=== PATIENT | female | born 1985 | race Caucasian/White ===

== ENCOUNTER → 2017-05-23 | Outpatient (CLI) | payer OTHER | LOC: FIMAGING 13:02 | PROVIDERS: ATTEND Midwife | DX: N63 Unspecified lump in breast (principal) ==

== ENCOUNTER 2017-07-12 11:53 | Day surgery (SDC) | payer BC, OTHER ==
[2017-07-12] MEDS ORDERED: ceFAZolin 2 GM/SWFI 2 GM/20 ML SYR IVP ONE (12:26)
[2017-07-12] MEDS ORDERED: LR 1,000 ML IV SCH (12:26)
[2017-07-12 12:32] VITALS: PULSE 65
[2017-07-12] MEDS ORDERED: LIDOCAINE 1% 2 ML INJ ID PRN (12:33)
[2017-07-12] MEDS ORDERED: LIDOCAINE 1% 300 MG/30 ML SDV ONE (12:42)
[2017-07-12] MEDS ORDERED: BUPIVACAINE 0.25% 30 ML SDV ONE (12:43)
[2017-07-12] MEDS ORDERED: SODIUM BICARBONATE 10 MEQ/10 ML SYR IVP ONE (12:43)
[2017-07-12] MEDS ORDERED: MIDAZOLAM 2 MG/2 ML VIAL IVP ONE (13:51)
--- NOTE | 2017-07-12 13:51 | PDANEPAE ---
ANE History of Present Illness Breast lump ANE Past Medical History - Cardiovascular History Hx Hypertension: No Hx Arrhythmias: No Hx Chest Pain: No Hx Coronary Artery / Peripheral Vascular Disease: No Hx CHF / Valvular Disease: No Hx Palpitations: No Cardiovascular History Comment: verapamil for headaches - Pulmonary History Hx COPD: No Hx Asthma/Reactive Airway Disease: No Hx Recent Upper Respiratory Infection: No Hx Oxygen in Use at Home: No Hx Sleep Apnea: No Sleep Apnea Screening Result - Last Documented: Negative - Neurologic History Hx Cerebrovascular Accident: No Hx Seizures: No Hx Dementia: No - Endocrine History Hx Diabetes: No - Renal History Hx Renal Disorders: No - Liver History Hx Hepatic Disorders: No - Neurological & Psychiatric Hx Hx Neurological and Psychiatric Disorders: No - Cancer History Hx Cancer: No - Congenital Disorder History Hx Congenital Disorders: No - GI History Hx Gastrointestinal Disorders: No - Other Health History Other Health History: none - Chronic Pain History Chronic Pain: Yes (lower back) - Surgical History Prior Surgeries: none ANE Review of Systems Review of Systems: - Exercise capacity METS (RN): 5 METS ANE Patient History - Allergies Allergies/Adverse Reactions: No Known Allergies Allergy (Verified 07/08/17 17:02) - Home Medications Home medications: home medication list seen and reviewed Home Medications: Verapamil 07/08/17 [Last Taken 07/10/17] - NPO status NPO Since - Liquids (Date): 07/11/17 NPO Since - Liquids (Time): 11:59 NPO Since - Solids (Date): 07/11/17 NPO Since - Solids (Time): 11:59 - Anes Hx Anes Hx: no prior problems - Smoking Hx Smoking Status: Never smoked - Family Anes Hx Family Hx Anesthesia Complications: none ANE Labs/Vital Signs - Vital Signs Blood Pressure: 122/81 Heart Rate: 65 Respiratory Rate: 14 O2 Sat (%): 98 Height: 165.1 cm Weight: 56.699 kg ANE Physical Exam - Airway Neck exam: FROM Mallampati Score: Class 1 Mouth exam: normal dental/mouth exam - Pulmonary Pulmonary: no respiratory distress - Cardiovascular Cardiovascular: regular rate and rhythym - ASA Status ASA Status: I ANE Anesthesia Plan Anesthesia Plan: MAC
--- NOTE | 2017-07-12 13:53 | PDHPUP ---
History & Physical Update H&P update statement: This history and physical update is based on an assessment of the patient which was completed after admission or registration (within 24 hours), but prior to the surgery/procedure. H&P update: H&P reviewed & patient examined, no change in patient's condition since H&P completed
[2017-07-12] MEDS ORDERED: PROPOFOL/EMULSION 500 MG/50 ML BOTTLE IV ONE (13:55)
[2017-07-12] MEDS ORDERED: ONDANSETRON 4 MG/2 ML VIAL IVP PRN (14:03)
[2017-07-12] MEDS ORDERED: NALOXONE HCL 0.4 MG/ML INJ IVP PRN (14:03)
[2017-07-12] MEDS ORDERED: fentaNYL 100 MCG/2 ML INJ IVP PRN (14:03)
--- NOTE | 2017-07-12 15:01 | POSTANESTH ---
Post Anesthetic Evaluation Cardiovascular Status: Normal, Stable Respiratory Status: Normal, Stable Level of Consciousness/Mental Status: Can Participate in Eval, Alert and Oriented Pain Control: Adequate, Prn Tx Ordered Nausea/Vomiting Control: Adequate, Prn Tx Ordered Complications Possibly Related to Anesthesia: None Noted
[2017-07-12] MEDS ORDERED: ONDANSETRON DISINTEGRATING 4 MG TAB PO PRN (15:08)
[2017-07-12] MEDS ORDERED: HYDROCODONE/APAP 5/325 TAB PO PRN (15:08)
[2017-07-12] MEDS ORDERED: IBUPROFEN 600 MG TAB PO PRN (15:09)
--- NOTE | 2017-07-12 15:12 | POSTOPPROG ---
Post Op Note Date of Operation: 07/12/17 Surgeon: Kana Mae (, FACS) Anesthesiologist: Arias Brewster MD Anesthesia: IV Sedation, Other (Specify) (MAC) Pre-op Diagnosis: left breast mass Post-op Diagnosis: same Procedure: left excisional breast bx Findings: benign appearing 8mm nodule Inf/Abcess present in the surg proc area at time of surgery?: No EBL: Minimal (10ml) Specimen(s): left breast mass, deep left breast tissue, superficial
[2017-07-12 15:21] VITALS: TEMP 97.7
[2017-07-12 15:39] VITALS: BP 117/87; RESP 15; O2SAT 100
--- NOTE | 2017-07-12 20:09 | GOP ---
[f rep st] OPERATIVE REPORT DATE OF OPERATION: 07/12/2017 SURGEON: Kana Mae MD, FACS ANESTHESIA: Monitored anesthesia care. ANESTHESIOLOGIST: Miguel Brewster MD PREOPERATIVE DIAGNOSIS: 1. Left breast mass. 2. Family history of breast cancer. POSTOPERATIVE DIAGNOSIS: 1. Left breast mass. 2. Family history of breast cancer. PROCEDURE PERFORMED: Left excisional breast biopsy. FINDINGS: Circumscribed nodular density within a background of dense fibrous breast tissue. Specimen containing an 8 mm circumscribed nodule, grossly consistent with a fibroadenoma. This was excised with additional superficial breast tissue submitted as separate specimens for permanent section. ESTIMATED BLOOD LOSS: 10 cc. DESCRIPTION OF PROCEDURE: After informed consent was obtained, the patient was brought to the operating room and placed under deep sedation. The left breast was prepped and draped in the usual fashion. Before proceeding, a time-out and identification of the patient was performed. 1% lidocaine plain was used to infiltrate the areolar border. The palpable mass was approximately 5 cm from the areolar border in the upper inner quadrant. The subcutaneous breast tissues were infiltrated up to the mass. A circumareolar incision was made with a scalpel, and dissection carried out in the subcutaneous plane cephalad to the area of the palpable mass. This was grasped with an Allis forceps and the tissue excised and removed from the field. This revealed some fibrofatty breast tissue but the nodule remained deep to this. An additional margin of deep breast tissue was excised removing the palpable mass and observing it to be consistent with a fibroadenoma. Hemostasis was secured within the cavity using cautery. Subcutaneous tissues were approximated with 3-0 Vicryl suture. Skin was closed with 4-0 Monocryl suture in a subcuticular fashion. Mastisol and Steri-Strips were applied. Needle, sponge, and instrument count correct. COMPLICATIONS: None. /[id number]/MODL MTDD
== END 2017-07-12 15:54 | disposition home or self-care (01) ==
LOC: FSGY 11:53
PROVIDERS: ATTEND Surgery
PROC: 0HBU0ZX Excision of Left Breast, Open Approach, Diagnostic (ICD-10-PCS; principal; 2017-07-12 13:15)
DX: D24.2 Benign neoplasm of left breast (principal); N60.12 Diffuse cystic mastopathy of left breast; N60.92 Unspecified benign mammary dysplasia of left breast; Z80.3 Family history of malignant neoplasm of breast
CPT/HCPCS: J0171; J0690; J2250; J2704